=== PATIENT | female | born 1985 | race Caucasian/White ===

== ENCOUNTER → 2016-10-23 | Outpatient (CLI) | payer BC ==
--- NOTE | 2016-10-23 17:08 | CR ---
EXAMINATION: Left shoulder HISTORY: Pain COMPARISON: None TECHNIQUE: 3 views FINDINGS/IMPRESSION: There is no acute osseous abnormality, dislocation, or fracture identified. Bon e mineralization and joint spaces appear normal.
== END ==
LOC: MW.CHORTHO 08:03
PROVIDERS: ATTEND Physician Assistant
DX: M25.512 Pain in left shoulder (principal)
CPT/HCPCS: 73030-26-LT; 73030-LT

== ENCOUNTER 2020-02-21 18:58 | Inpatient (IN) | payer OTHER ==
[2020-02-21] MEDS ORDERED: Nalbuphine 10 MG/1 ML Vial IVPUSH PRN (21:43)
[2020-02-21] MEDS ORDERED: Sodium Chloride 0.9% 10 ML SDV IV PRN (21:43)
[2020-02-21] MEDS ORDERED: Misoprostol 200 MCG Tab PO PRN (21:43)
[2020-02-21] MEDS ORDERED: Water For Irrigation,Sterile 1,000 ML Container IRR PRN (21:43)
[2020-02-21] MEDS ORDERED: Carboprost Tromethamine 250 MCG/1 ML Amp IM PRN (21:43)
[2020-02-21] MEDS ORDERED: Sodium Chloride 0.9% 2.5 ML Syringe FLUSH PRN (21:43)
[2020-02-21] MEDS ORDERED: Methylergonovine 0.2 MG/1 ML Amp IM PRN (21:43)
[2020-02-21] MEDS ORDERED: Butorphanol 1 MG/ML SDV IVPUSH PRN (21:43)
[2020-02-21] MEDS ORDERED: Tranexamic Acid 1,000 MG in Sodium Chloride 0.9% 100 ML IV PRN (21:43)
[2020-02-21] MEDS ORDERED: Lidocaine 1% 50 ML MDV INJECT PRN (21:43)
[2020-02-21] MEDS ORDERED: Sodium Chloride 0.9% 10 ML Syringe FLUSH PRN (21:43)
[2020-02-21] MEDS ORDERED: Oxytocin/0.9 % Sodium Chloride 30 UNIT/500 ML BAG IV SCH (21:45)
[2020-02-21] MEDS: Lactated Ringers 1,000 ML IV SCH ×2 (22:10→23:50)
[2020-02-21] MEDS ORDERED: Ropivacaine HCl/PF 100 ML ONE (22:18)
[2020-02-21] MEDS ORDERED: fentaNYL 100 MCG/2 ML SDV ONE (22:18)
--- NOTE | 2020-02-21 22:44 | PCM.PREANE ---
Preanesthetic Assessment - Anesthesia/Transfusion/Family Hx Anesthesia History: Prior Anesthesia Without Reaction Family History of Anesthesia Reaction: No - Physical Assessment NPO Status Date: 02/21/20 NPO Status Time: 19:00 Height: 1.7 m Weight: 92.079 kg ASA Class: 2 - Lab Values: Laboratory Last Values WBC 11.19 K/uL (4.0-11.0) H 02/21/20 21:25 RBC 4.09 M/uL (4.30-5.90) L 02/21/20 21:25 Hgb 12.1 g/dL (12.0-16.0) 02/21/20 21:25 Hct 35.8 % (36.0-46.0) L 02/21/20 21:25 MCV 87.5 fL (80.0-98.0) 02/21/20 21: MCH 29.6 pg (27.0-32.0) 02/21/20 21: MCHC 33.8 g/dL (31.0-37.0) 02/21/20 21:25 RDW Std Deviation 38.4 fl (28.0-62.0) 02/21/20 21:25 RDW Coeff of Tyrese 12 % (11.0-15.0) 02/21/20 21:25 Plt Count 232 K/uL (150-400) 02/21/20 21:25 MPV 10.80 fL (7.40-12.00) 02/21/20 21:25 COVID-19 (VON) NEGATIVE (NEGATIVE) 02/21/20 21:35 Blood Type A POSITIVE 02/21/20 21: Antibody Screen NEGATIVE 02/21/20 21:25 - Allergies Allergies/Adverse Reactions: Allergies Allergy/AdvReac Type Severity Reaction Status Date / Time No Known Allergies Allergy Verified 03/15/15 19:50 - Acknowledgements Anesthesia Type Planned: Epidural Pt an Appropriate Candidate for the Planned Anesthesia: Yes Alternatives and Risks of Anesthesia Discussed w Pt/Guardian: Yes Pt/Guardian Understands and Agrees with Anesthesia Plan: Yes PreAnesthesia Questionnaire - Past Health History Medical/Surgical History: Denies Medical/Surgical History Psychiatric History: Reports: Depression - HOME MEDS Home Medications: Home Meds . [No Known Home Meds] 03/15/15 [History] - CURRENT (IN HOUSE) MEDS Current Meds: Current Medications Butorphanol Tartrate (Stadol) 1 mg IVPUSH Q1H PRN PRN Reason: Pain Carboprost Tromethamine (Hemabate Ds) 250 mcg IM ASDIRECTED PRN PRN Reason: Post Hemorrhage Oxytocin/Sodium Chloride (Oxytocin 30 Unit/500 Ml-Ns) 30 unit in 500 mls @ 500 mls/hr IV TITRATE YARY Tranexamic Acid 1,000 mg/ (Sodium Chloride) 110 mls @ 660 mls/hr IV ONETIME PRN PRN Reason: Bleeding Lactated Ringer's (Ringers, Lactated) 1,000 mls @ 150 mls/hr IV ASDIRECTED YARY Lidocaine HCl (Xylocaine 1%) 50 ml INJECT ONETIME PRN PRN Reason: Laceration repair Methylergonovine Maleate (Methergine) 0.2 mg IM ASDIRECTED PRN PRN Reason: Post Hemorrhage Misoprostol (Cytotec) 200 mcg PO ONETIME PRN PRN Reason: Post Hemorrhage Nalbuphine HCl (Nubain) 10 mg IVPUSH Q1H PRN PRN Reason: Pain (severe 7-10) Sodium Chloride (Saline Flush) 10 ml FLUSH ASDIRECTED PRN PRN Reason: Keep Vein Open Sodium Chloride (Saline Flush) 2.5 ml FLUSH ASDIRECTED PRN PRN Reason: Keep Vein Open Sodium Chloride (Normal Saline) 10 ml IV ASDIRECTED PRN PRN Reason: IV Use Sterile Water (Sterile Water For Irrigation) 1,000 ml IRR ASDIRECTED PRN PRN Reason: delivery Discontinued Medications Fentanyl (Sublimaze) Confirm Administered Dose 100 mcg .ROUTE .STK-MED ONE Stop: 02/21/20 22:19 Ropivacaine (Naropin 0.2%) Confirm Administered Dose 100 mls @ as directed .ROUTE .STK-MED ONE Stop: 02/21/20 22:19
--- NOTE | 2020-02-21 22:47 | PCM.PRNOTE ---
- Free Text/Narrative Note: Anes Note Patient requests epidural for L&D. Sitting position, level L23-L4 midline approach. Sterile technique. Chloraprep scrub to lumbar area. Sterile fenestrated drape applied. Epidural space easily achieved single attempt with ease using KASIA technique. KASIA at 4 cm. Cath threaded 5 cm with ease. Cath secured at 10 cm at skin using sterile clear adhesive dressing. Test 2235 3 cc 1.% lidow tih epi negative. 223 Load 10 cc 0.2% ropiv with 1 mcg cc fentanyl in slow divided doses. 2242 Pump started wtih 90 cc same solution. Rate is 8 cc hr with 6 cc q 20 min prn bolus. Eladio well. Time with patient [id number] Roel Harp CRNA
[2020-02-22] MEDS: Lactated Ringers 1,000 ML IV SCH ×3 (00:08→11:27)
[2020-02-22] MEDS ORDERED: Oxytocin/0.9 % Sodium Chloride 30 UNIT/500 ML BAG IV SCH ×2 (03:45→04:00)
--- NOTE | 2020-02-22 03:57 | PCM.PRNOTE ---
- Free Text/Narrative Note: Anes Note Epidural infusion was restarted. Rate is 8 cc hr with 6 cc q 20 min prn bolus. Time with patient [id number] Roel Harp CRNA
[2020-02-22] MEDS ORDERED: fentaNYL 100 MCG/2 ML SDV ONE (11:43)
[2020-02-22] MEDS ORDERED: Ropivacaine HCl/PF 100 ML ONE (11:44)
--- NOTE | 2020-02-22 12:00 | PCM.SN.2 ---
- Free Text/Narrative Note: Patient epidural bag changed. bolus dose given. pump setting the same.
[2020-02-22] MEDS ORDERED: Ibuprofen 400 MG Tab PO PRN (12:51)
[2020-02-22] MEDS ORDERED: Lanolin 100% Cream 7 GM Tube TOP PRN (12:51)
[2020-02-22] MEDS ORDERED: Bisacodyl 10 MG Supp RECTAL PRN (12:51)
[2020-02-22] MEDS ORDERED: Ibuprofen 800 MG Tab PO PRN (12:51)
[2020-02-22] MEDS ORDERED: oxyCODONE 5 MG Tab PO PRN (12:51)
[2020-02-22] MEDS ORDERED: Witch Hazel Medicated Pads 40/Jar TOP PRN (12:51)
[2020-02-22] MEDS ORDERED: Acetaminophen 500 MG Tab PO PRN ×2 (12:51)
[2020-02-22] MEDS ORDERED: Benzocaine/Menthol 20%-0.5% Spray 78 GM Cannister TOP PRN (12:51)
[2020-02-22] MEDS ORDERED: Docusate Sodium 100 MG Cap PO PRN (12:51)
--- NOTE | 2020-02-22 12:57 | PCM.OPNOTE ---
- General Post-Op/Procedure Note Date of Surgery/Procedure: 02/22/20 Operative Procedure(s): Pre Op Diagnosis: Spontaneous labor Anesthesia Technique: Epidural Primary Surgeon: Homa Sebastian Secondary Surgeon: Dontae Wilder Pathology: Intact placenta with three vessel cord EBL in mLs: 250 Complications: None known Condition: Good Free Text/Narrative:: Patient is a 34 year old who presented for spontaneous labor at 39w0d gestation age on 02/21/20 at 2115. Patient is GBS negative, A+ with negative antibody screen and rubella immune. Patient received routine care. Epidural was placed at 2225 and Pitocin was started at 0343. At 1215 the patient was complete and began pushing. At 1229 a 3900 g male was delivered via spontaneous vaginal delivery. was in DARIAN position. The was suctioned and placed on the mothers chest; the was then dried and warmed. The cord was clamped and the father cut the cord. Cord gases were drawn and cord blood obtained. At 1236 a spontaneous intact placenta was delivered with a three vessel cord. Inspection of the vaginal mucosa and perineum revealed a small lesion to the right vaginal mucosa. This was repaired with 3-0 vicyl. The patient was doing well.
--- NOTE | 2020-02-22 13:41 | OR ---
SURGEON: Homa Sebastian M.D. DATE OF PROCEDURE: 02/22/2020 PREOPERATIVE DIAGNOSES: 1. A 39-1/7 weeks' intrauterine . 2. Labor. POSTOPERATIVE DIAGNOSES: 1. A 39-1/7 weeks' intrauterine . 2. Labor. PROCEDURE: Spontaneous vaginal delivery, intact perineum. PRIMARY SURGEON: Homa Sebastian MD ANESTHESIA: Epidural. ESTIMATED BLOOD LOSS: 250 mL. COMPLICATIONS: None known. FINDINGS: Viable male. score of 7 at one minute and 9 at five minutes. Weight of 3900 g. Spontaneous delivery, intact placenta, 3-vessel cord. DISPOSITION: Infant to nursery, mom in LDRP. PROCEDURE DETAILS: Reema is a 34-year-old, G4, P3, at 39-1/7 weeks' gestational age, who presented on the evening of 02/21/2020 and found to be in early labor. She was monitored over the evening hours. Artificial rupture of membranes happened shortly after 1 a.m. With minimal progression, we initiated Pitocin augmentation shortly after 3 a.m. I assumed care of the patient at approximately 8 a.m. this morning. At that time, she was found to be 7 cm, comfortable with an epidural, and on 8 units of Pitocin. heart tones were category 1. The patient continued to progress through the morning hours and shortly before noon was found to be 9.5 cm, 100% effaced, at a +1 station. Labor progressed easily, and the patient began pushing efforts. Pushed to a +2 station. I was called for delivery. Upon my arrival, the patient was placed in modified dorsal lithotomy position, was prepped and draped in the usual aseptic manner. Began pushing efforts, pushed adequately to a +4 station, was able to deliver infant's head atraumatically spontaneously, followed by anterior shoulder, posterior shoulder, and remainder of the body without difficulty. A loose nuchal cord x1 was reduced manually. 's oropharynx and nares were bulb suctioned. Infant was handed off to his mother with attending nursing staff at the side. After a delay, the cord was clamped x2 and cut. Cord arterial, cord venous, cord blood sampling obtained. Light pressure was applied while the placenta was delivered spontaneously intact. Vigorous fundal uterine massage was then applied while 30 units of Pitocin was delivered in 500 mL of IV fluid. Upon inspection of cervix, vaginal sidewalls, and perineum, there was found to be a first-degree right hymenal laceration, repaired with a simple [id number] suture of 3-0 Monocryl. Uterus remained firm. Hemostasis evident. Sponge, instrument, and needle count was correct. The patient remained in LDRP, to nursery. BERENICE / LINA /[id number]
--- NOTE | 2020-02-23 07:11 | PCM48HPAN ---
Post Anesthesia Note - EVALUATION WITHIN 48HRS OF ANESTHETIC Vital Signs in Normal Range: Yes Patient Participated in Evaluation: Yes Respiratory Function Stable: Yes Airway Patent: Yes Cardiovascular Function Stable: Yes Hydration Status Stable: Yes Pain Control Satisfactory: Yes Nausea and Vomiting Control Satisfactory: Yes Mental Status Recovered: Yes Vital Signs: Last Vital Signs Temp 36.6 C 02/23/20 04:00 Pulse 65 02/23/20 04:00 Resp 14 02/23/20 04:00 BP 122/75 02/23/20 04:00 Pulse Ox 95 02/23/20 04:00 - COMMENTS/OBSERVATIONS Free Text/Narrative:: The patient has no complaints at this time. There were no apparent anesthetic complications. Discharge from anesthesia care.
--- NOTE | 2020-02-23 07:36 | PCM.PNPP ---
<Dontae Wilder - Last Filed: 02/23/20 07:36> - General Info Date of Service: 02/23/20 Admission Dx/Problem (Free Text): 34 year old who presented in spontaneous labor at 39w0d and underwent of a male infant weighing 3900 grams with Apgars of 7/9 Subjective Update: Patient is doing well today. She reports minimal pain, has been ambulating and has urinated. She denies any dysuria. Has not yet defecated but has been passing flatus. She reports a good appetite. Breast feeding is going well and she is supplementing with formula Functional Status: Reports: Pain Controlled, Tolerating Diet, Ambulating, Urinating - Review of Systems General: Reports: No Symptoms HEENT: Reports: No Symptoms Pulmonary: Reports: No Symptoms Cardiovascular: Reports: No Symptoms Gastrointestinal: Reports: No Symptoms Genitourinary: Reports: No Symptoms Musculoskeletal: Reports: No Symptoms Skin: Reports: No Symptoms Neurological: Reports: No Symptoms Psychiatric: Reports: No Symptoms - General Info Date of Service: 02/23/20 - Patient Data Vital Signs - Most Recent: Last Vital Signs Temp 97.9 F 02/23/20 04:00 Pulse 65 02/23/20 04:00 Resp 14 02/23/20 04:00 BP 122/75 02/23/20 04:00 Pulse Ox 95 02/23/20 04:00 Weight - Most Recent: 92.079 kg Lab Results - Last 24 Hours: Laboratory Results - last 24 hr 02/22/20 02/23/20 Range/Units 12:29 05:43 Hgb 10.0 L (12.0-16.0) g/dL Hct 30.4 L (36.0-46.0) % Cord ABG pH 7.136 L (7.18-7.38) Cord ABG Base Excess -7 (-10--2) Cord VBG pH 7.307 (7.25-7.45) Cord VBG Base Excess -6 (-10--2) Med Orders - Current: Current Medications Acetaminophen (Tylenol Extra Strength) 500 mg PO Q4H PRN PRN Reason: Pain Acetaminophen (Tylenol Extra Strength) 1,000 mg PO Q4H PRN PRN Reason: Pain Benzocaine/Menthol (Dermoplast Pain Relief 20%-0.5% [place]) 78 gm TOP ASDIRECTED PRN PRN Reason: Perineal Comfort Measure Last Admin: 02/22/20 14:51 Dose: 1 spray Documented by: Bisacodyl (Dulcolax) 10 mg RECTAL ONETIME PRN PRN Reason: Constipation Carboprost Tromethamine (Hemabate Ds) 250 mcg IM ASDIRECTED PRN PRN Reason: Post Hemorrhage Docusate Sodium (Colace) 100 mg PO BID PRN PRN Reason: Constipation Emollient Ointment (Lansinoh Hpa) 0 gm TOP ASDIRECTED PRN PRN Reason: Sore Nipples Oxytocin/Sodium Chloride (Oxytocin 30 Unit/500 Ml-Ns) 30 unit in 500 mls @ 500 mls/hr IV TITRATE [facility] Last Admin: 02/22/20 13:06 Dose: 500 mls/hr Documented by: Tranexamic Acid 1,000 mg/ (Sodium Chloride) 110 mls @ 660 mls/hr IV ONETIME PRN PRN Reason: Bleeding Lactated Ringer's (Ringers, Lactated) 1,000 mls @ 150 mls/hr IV ASDIRECTED [facility] Last Admin: 02/22/20 11:27 Dose: 150 mls/hr Documented by: Ibuprofen (Motrin) 400 mg PO Q4H PRN PRN Reason: Pain Ibuprofen (Motrin) 800 mg PO Q6H PRN PRN Reason: Pain Last Admin: 02/22/20 14:50 Dose: 800 mg Documented by: Methylergonovine Maleate (Methergine) 0.2 mg IM ASDIRECTED PRN PRN Reason: Post Hemorrhage Oxycodone HCl (Oxycodone) 5 mg PO Q2H PRN PRN Reason: Pain Sodium Chloride (Saline Flush) 10 ml FLUSH ASDIRECTED PRN PRN Reason: Keep Vein Open Sodium Chloride (Saline Flush) 2.5 ml FLUSH ASDIRECTED PRN PRN Reason: Keep Vein Open Sodium Chloride (Normal Saline) 10 ml IV ASDIRECTED PRN PRN Reason: IV Use Sterile Water (Sterile Water For Irrigation) 1,000 ml IRR ASDIRECTED PRN PRN Reason: delivery Witch Isatu (Tucks) 1 pad TOP ASDIRECTED PRN PRN Reason: comfort care Last Admin: 02/22/20 14:52 Dose: 2 pad Documented by: Discontinued Medications Butorphanol Tartrate (Stadol) 1 mg IVPUSH Q1H PRN PRN Reason: Pain Fentanyl (Sublimaze) Confirm Administered Dose 100 mcg .ROUTE .STK-MED ONE Stop: 02/21/20 22:19 Last Admin: 02/22/20 01:13 Dose: Not Given Documented by: Fentanyl (Sublimaze) Confirm Administered Dose 100 mcg .ROUTE .STK-MED ONE Stop: 02/22/20 11:44 Ropivacaine (Naropin 0.2%) Confirm Administered Dose 100 mls @ as directed .ROUTE .STK-MED ONE Stop: 02/21/20 22:19 Last Admin: 02/22/20 01:13 Dose: Not Given Documented by: Oxytocin/Sodium Chloride (Oxytocin 30 Unit/500 Ml-Ns) 30 unit in 500 mls @ 2 mls/hr IV TITRATE YARY; Protocol Last Infusion: 02/22/20 07:20 Dose: 8 munits/min, 8 mls/hr Documented by: Oxytocin/Sodium Chloride (Oxytocin 30 Unit/500 Ml-Ns) 30 unit in 500 mls @ 2 mls/hr IV TITRATE YARY; Protocol Ropivacaine (Naropin 0.2%) Confirm Administered Dose 100 mls @ as directed .ROUTE .[employer]-MED ONE Stop: 02/22/20 11:45 Lidocaine HCl (Xylocaine 1%) 50 ml INJECT ONETIME PRN PRN Reason: Laceration repair Misoprostol (Cytotec) 200 mcg PO ONETIME PRN PRN Reason: Post Hemorrhage Nalbuphine HCl (Nubain) 10 mg IVPUSH Q1H PRN PRN Reason: Pain (severe 7-10) - Interaction Disposition, : at Bedside Infant Interaction: Holding Feeding: Attempted ; Nursed Fair/Poor, Bottle Fed Infant Support Person: - Recovery Exam Fundal Tone: Firm Fundal Level: 1 Fingerbreadths Below Umbilicus Fundal Placement: Midline Lochia Amount: Scant Lochia Color: Rubra/Red Perineum Description: Intact, Minimal Bruising/Swelling Bladder Status: Voiding Urinary Elimination: Voided - Exam General: Alert, Oriented HEENT: Pupils Equal, Pupils Reactive, EOMI Lungs: Clear to Auscultation, Normal Respiratory Effort Cardiovascular: Regular Rate, Regular Rhythm GI/Abdominal Exam: Normal Bowel Sounds, Non-Tender, No Organomegaly, No Distention, No Mass Extremities: Normal Inspection, Non-Tender, Normal Capillary Refill Skin: Warm, Dry, Intact Neurological: No New Focal Deficit Psy/Mental Status: Alert, Normal Affect, Normal Mood - Problem List & Annotations (1) Normal vaginal delivery SNOMED Code(s): 90615843, 361078926 Code(s): O80 - ENCOUNTER FOR FULL-TERM UNCOMPLICATED DELIVERY Status: Acute Current Visit: Yes - Problem List Review Problem List Initiated/Reviewed/Updated: Yes - Assessment Assessment:: of a male infant weighing 3900 at 39w1d gestational age to a 34 year old . Apgars 7/9 - Plan Plan:: 1. GBS negative 2. Rubella immune 3. A+ with negative antibody screen 4. Breast feeding as tolerated 5. care per unit routine 6. Discharge home at 24 hours depending on photoengraving helper's assessment <Homa Sebastian - Last Filed: 02/23/20 08:19> - Patient Data Vital Signs - Most Recent: Last Vital Signs Temp 36.6 C 02/23/20 04:00 Pulse 65 02/23/20 04:00 Resp 14 02/23/20 04:00 BP 122/75 02/23/20 04:00 Pulse Ox 95 02/23/20 04:00 Lab Results - Last 24 Hours: Laboratory Results - last 24 hr 02/22/20 02/23/20 Range/Units 12:29 05:43 Hgb 10.0 L (12.0-16.0) g/dL Hct 30.4 L (36.0-46.0) % Cord ABG pH 7.136 L (7.18-7.38) Cord ABG Base Excess -7 (-10--2) Cord VBG pH 7.307 (7.25-7.45) Cord VBG Base Excess -6 (-10--2) Med Orders - Current: Current Medications Acetaminophen (Tylenol Extra Strength) 500 mg PO Q4H PRN PRN Reason: Pain Acetaminophen (Tylenol Extra Strength) 1,000 mg PO Q4H PRN PRN Reason: Pain Benzocaine/Menthol (Dermoplast Pain Relief 20%-0.5% [place]) 78 gm TOP ASDIRECTED PRN PRN Reason: Perineal Comfort Measure Last Admin: 02/22/20 14:51 Dose: 1 spray Documented by: Bisacodyl (Dulcolax) 10 mg RECTAL ONETIME PRN PRN Reason: Constipation Carboprost Tromethamine (Hemabate Ds) 250 mcg IM ASDIRECTED PRN PRN Reason: Post Hemorrhage Docusate Sodium (Colace) 100 mg PO BID PRN PRN Reason: Constipation Emollient Ointment (Lansinoh Hpa) 0 gm TOP ASDIRECTED PRN PRN Reason: Sore Nipples Oxytocin/Sodium Chloride (Oxytocin 30 Unit/500 Ml-Ns) 30 unit in 500 mls @ 500 mls/hr IV TITRATE YARY Last Admin: 02/22/20 13:06 Dose: 500 mls/hr Documented by: Tranexamic Acid 1,000 mg/ (Sodium Chloride) 110 mls @ 660 mls/hr IV ONETIME PRN PRN Reason: Bleeding Lactated Ringer's (Ringers, Lactated) 1,000 mls @ 150 mls/hr IV ASDIRECTED [facility] Last Admin: 02/22/20 11:27 Dose: 150 mls/hr Documented by: Ibuprofen (Motrin) 400 mg PO Q4H PRN PRN Reason: Pain Ibuprofen (Motrin) 800 mg PO Q6H PRN PRN Reason: Pain Last Admin: 02/22/20 14:50 Dose: 800 mg Documented by: Methylergonovine Maleate (Methergine) 0.2 mg IM ASDIRECTED PRN PRN Reason: Post Hemorrhage Oxycodone HCl (Oxycodone) 5 mg PO Q2H PRN PRN Reason: Pain Sodium Chloride (Saline Flush) 10 ml FLUSH ASDIRECTED PRN PRN Reason: Keep Vein Open Sodium Chloride (Saline Flush) 2.5 ml FLUSH ASDIRECTED PRN PRN Reason: Keep Vein Open Sodium Chloride (Normal Saline) 10 ml IV ASDIRECTED PRN PRN Reason: IV Use Sterile Water (Sterile Water For Irrigation) 1,000 ml IRR ASDIRECTED PRN PRN Reason: delivery Witch Isatu (Tucks) 1 pad TOP ASDIRECTED PRN PRN Reason: comfort care Last Admin: 02/22/20 14:52 Dose: 2 pad Documented by: Discontinued Medications Butorphanol Tartrate (Stadol) 1 mg IVPUSH Q1H PRN PRN Reason: Pain Fentanyl (Sublimaze) Confirm Administered Dose 100 mcg .ROUTE .[facility]-MED ONE Stop: 02/21/20 22:19 Last Admin: 02/22/20 01:13 Dose: Not Given Documented by: Fentanyl (Sublimaze) Confirm Administered Dose 100 mcg .ROUTE .[facility]-MED ONE Stop: 02/22/20 11:44 Ropivacaine (Naropin 0.2%) Confirm Administered Dose 100 mls @ as directed .ROUTE .[facility]-MED ONE Stop: 02/21/20 22:19 Last Admin: 02/22/20 01:13 Dose: Not Given Documented by: Oxytocin/Sodium Chloride (Oxytocin 30 Unit/500 Ml-Ns) 30 unit in 500 mls @ 2 mls/hr IV TITRATE YARY; Protocol Last Infusion: 02/22/20 07:20 Dose: 8 munits/min, 8 mls/hr Documented by: Oxytocin/Sodium Chloride (Oxytocin 30 Unit/500 Ml-Ns) 30 unit in 500 mls @ 2 mls/hr IV TITRATE YARY; Protocol Ropivacaine (Naropin 0.2%) Confirm Administered Dose 100 mls @ as directed .ROUTE .[facility] ONE Stop: 02/22/20 11:45 Lidocaine HCl (Xylocaine 1%) 50 ml INJECT ONETIME PRN PRN Reason: Laceration repair Misoprostol (Cytotec) 200 mcg PO ONETIME PRN PRN Reason: Post Hemorrhage Nalbuphine HCl (Nubain) 10 mg IVPUSH Q1H PRN PRN Reason: Pain (severe 7-10) - My Orders Last 24 Hours: My Active Orders 02/22/20 Lunch Regular Diet [DIET] 02/22/20 12:51 Patient Status [ADT] Routine Notify Provider Vital Signs [RC] ASDIRECTED Up ad Luly [RC] ASDIRECTED Vital Signs [RC] PER UNIT ROUTINE Acetaminophen [Tylenol Extra Strength] 1,000 mg PO Q4H PRN Acetaminophen [Tylenol Extra Strength] 500 mg PO Q4H PRN Benzocaine/Menthol [Dermoplast Pain Relief 20%-0.5% [place]] 78 gm TOP ASDIRECTED PRN Docusate Sodium [Colace] 100 mg PO BID PRN Ibuprofen [Motrin] 400 mg PO Q4H PRN Ibuprofen [Motrin] 800 mg PO Q6H PRN Lanolin [Lansinoh HPA] See Dose Instructions TOP ASDIRECTED PRN bisacodyL [Dulcolax] 10 mg RECTAL ONETIME PRN oxyCODONE 5 mg PO Q2H PRN witch Isatu [Tucks] 1 pad TOP ASDIRECTED PRN Assess Lochia [WOMSER] Per Unit Routine Assess Uterine Involution [WOMSER] Per Unit Routine Ice Therapy [OM.PC] Per Unit Routine Perineal Care [OM.PC] Per Unit Routine Peripheral IV Discontinue [OM.PC] Routine Sitz Bath [OM.PC] Per Unit Routine - Plan Plan:: Patient seen and examined, agree with above. Discharge to home today. Discharge instructions reviewed. Follow up at [facility] 6 weeks.
[2020-02-23 20:04] VITALS: BP 113/59; PULSE 63
== END 2020-02-23 21:32 | disposition home or self-care (01) | DRG 807 ==
LOC: MW.OBCHECK 18:58 → MW.OB 18:58 → MW.OBCHECK 21:43 → OBSVTOIN 02-22 12:29 → MW.OB 02-22 16:11
PROVIDERS: ADMIT Obstetrics & Gynecology; ATTEND Obstetrics & Gynecology
PROC: 10E0XZZ Delivery of Products of Conception, External Approach (ICD-10-PCS; principal; 2020-02-22)
PROC: 10907ZC Drainage of Amniotic Fluid, Therapeutic from Products of Conception, Via Natural or Artificial Opening (ICD-10-PCS; 2020-02-22)
PROC: 0HQ9XZZ Repair Perineum Skin, External Approach (ICD-10-PCS; 2020-02-22)
PROC: 3E0R3BZ Introduction of Anesthetic Agent into Spinal Canal, Percutaneous Approach (ICD-10-PCS; 2020-02-22)
PROC: 00HU33Z Insertion of Infusion Device into Spinal Canal, Percutaneous Approach (ICD-10-PCS; 2020-02-22)
DX: O80 Encounter for full-term uncomplicated delivery (principal); Z37.0 Single live birth; Z3A.39 39 weeks gestation of pregnancy; Z11.59 Encounter for screening for other viral diseases
CPT/HCPCS: 36415; 51702; 59025; 59409; 82803; 85014; 85018; 85027; 86592; 86850; 86900; 86901; A9270-GY; J2590; J2795; J3010; J7120; U0002